=== PATIENT | female | born 1950 | race African-American/Black ===

== ENCOUNTER → 2017-03-17 | Outpatient (CLI) | payer MEDICARE, OTHER ==
[~2017-03-17] MED LIST: ACETAMINOPHEN PO; ALPRAZOLAM PO; AMITRIPTYLINE H25 MG PO; ASPIRIN ENTERI325 M1 PO; ASPIRIN PO; ASPIRIN81 M2 PO; CARVEDILOL3.125 MG PO; COLACE PO; COREG CR10 MG PO; COREG3.125 MG PO; DILAUDID2 MG PO; FENOFIBRATE145 M1 PO; FLEXERIL10 MG PO; GABAPENTIN300 M2 PO; HCTZ PO; HYDROCHLOROTHIA25 MG PO; HYDROXYZINE HCL50 MG PO; KEPPRA500 M1 PO; KEPPRA750 M1 PO; LANTUS100 UNITS/ INJ; LANTUS100 UNITS/ SUBQ; LEVEMIR FL100 UNIT/1 SQ; LEVEMIR100 UNITS/ SUBQ; LEVETIRACETAM1000 MG PO; LIPITOR20 MG PO; LISINOPRIL10 MG PO; LISINOPRIL20 MG PO; LISINOPRIL30 MG PO; LITHIUM PO; LORTAB 10-5001 EACH PO; MONISTAT 745 GM VAG; NAPROSYN500 MG PO; NEURONTIN PO; NEURONTIN300 MG PO; NICOTINE TRANSD14 MG EXT; NITROGLYCERIN0.4 MG SL; NO MEDICATIONS; NORTRIPTYLINE H75 MG PO; NORVASC PO; PLAVIX PO; PREDNISONE PO; PROTONIX PO; QUETIAPINE FUM300 MG PO; RISPERIDONE1 MG PO; ROBITUSSIN-DM118 M1 PO; SEROQUEL PO; SEROQUEL XR200 MG PO; SEROQUEL300 MG PO; SEROQUEL400 MG PO; SEROQUEL50 M1 PO; SIMVASTATIN40 MG PO; TAGAMET PO; TOPAMAX PO; TOPAMAX25 MG PO; TOPAMAX50 MG PO; TOPIRAMATE100 MG PO; TYLENOL325 M1 PO; VICODIN PO; VIMPAT50 MG PO; ZESTRIL40 MG PO; ZOCOR PO
--- NOTE | ~2017-03-17 | US128 ---
[id number] [facility] [address]. [place], [place] [address] [id number] O MR#: [id number] Acc #: [id number] NAME: TAWANDA STEPHEN : 1950 SEX: F STUDY DATE/TIME: 03/17/2017 11:37 UNIT: [facility]US ROOM: STUDY DESCRIPTION: US Thyroid Attending Physician: Toshia Leal Referring Physician: Toshia Leal Ordering Physician: Toshia Leal Primary Care Physician: Toshia Leal MEDICAL IMAGING REPORT This report is preliminary unless electronic signature is present EXAM Thyroid ultrasound. DATE 03/17/2017 HISTORY Thyroid fullness. Patient states doctor felt thyroid, it was enlarged on physical exam. COMPARISON No previous dedicated thyroid ultrasound at this institution for comparison. Correlation is made to MRA of the neck from 10/28/2011. FINDINGS The isthmus measures 5 mm in thickness. The right thyroid lobe measures 4.1 x 1.5 x 2.3 cm. The left thyroid lobe measures 4.2 x 1.3 x 2.1 cm. Scattered hypoechoic nodules are seen within both thyroid lobes. A 1.1 x 0.6 x 0.9 cm hypoechoic nodule is seen within the right lower thyroid pole without hypervascularity on color Doppler imaging. In the posterior right mid to upper thyroid pole, a 1.3 x 0.9 x 1.0 cm solid well-circumscribed nodule is seen which does not appear hypervascular on color Doppler imaging. Within the left lobe, a 7 mm nodule is seen. Within the isthmus, a solid hypoechoic 1.0 x 0.5 x 0.7 cm nodule is seen without hypervascularity. Within the left upper thyroid pole, hypoechoic solid-appearing 6 x 5 x 5 mm nodule is seen. The included portions of the extrathyroidal soft tissues appear unremarkable. IMPRESSION 1. Multinodular nonenlarged thyroid gland. A dominant nodule is solid and located in the right mid to upper thyroid pole measuring 1.3 cm. These nodules do not meet sonographic criteria to warrant fine-needle aspiration at this time (following the recommendations from the Society of Radiologists and Ultrasound). Continued attention at surveillance imaging would be recommended. Dictated by... Nola Guerrier M.D. THIS IS AN ELECTRONICALLY VERIFIED REPORT Nola Guerrier M.D. at 03/18/2017 3:28 PM NATHANIEL/kristie TD: 03/17/2017 16:48 JOB #: [id number] MEDICAL IMAGING REPORT Page 1 of 1 COPY
== END | disposition home or self-care (01) ==
LOC: CGUS 03-08 13:30
DX: E07.89 Other specified disorders of thyroid (principal); E04.2 Nontoxic multinodular goiter
CPT/HCPCS: 76536

== ENCOUNTER → 2017-03-28 | Outpatient (CLI) | payer MEDICARE, OTHER ==
--- NOTE | ~2017-03-28 | BD1 ---
[facility] A Service [facility] RADIOLOGY TEXT RESULTS PATIENT: TAWANDA STEPHEN LOCATION: [facility] : 54 UNIT #: [id number] AGE: [address]: ANA LEAL SEX: F ORDER DR: [id number] [facility] [address]. [place], [place] [address] [id number] O MR#: [id number] Acc #: [id number] NAME: TAWANDA STEPHEN : 1950 SEX: F STUDY DATE/TIME: 03/28/2017 12:39 UNIT: [facility] ROOM: STUDY DESCRIPTION: BD Dexa Bone Dens 1+ Site Attending Physician: Ana Leal Referring Physician: Ana Leal Ordering Physician: Ana Leal Primary Care Physician: Ana Leal MEDICAL IMAGING REPORT This report is preliminary unless electronic signature is present EXAM DXA scan, 03/28/2017. HISTORY Status post menopause with no hormone replacement therapy. Osteopenia. Hysterectomy with removal of both ovaries. Breast carcinoma. Family history of breast carcinoma in mother. Rheumatoid arthritis and diabetes. Hypertension with blood pressure medication. Anticonvulsant use for 6 years. Smoking history for 20 years. Fracture of ankle in last 10 years. FINDINGS Bone mineral density in the left femoral neck was 0.643 g/cm2 which is 1.9 standard deviations below the mean when compared to the young adult reference population which is characteristic of osteopenia. This is 0.9 standard deviations below the mean when compared to the age-matched population. Bone mineral density in the left forearm was 0.508 g/cm2 which is 1.1 standard deviations below the mean when compared to the young adult reference population which is characteristic of osteopenia. This is 0.5 standard deviations above the mean when compared to the age-matched population. IMPRESSION Bone mineral density in the left femoral neck and left forearm characteristic of osteopenia. Dictated by... Clifford Cervantes M.D. THIS IS AN ELECTRONICALLY VERIFIED REPORT [facility] A Service of [facility] RADIOLOGY TEXT RESULTS PATIENT: TAWANDA STEPHEN [facility] [id number] : 54 UNIT #: [id number] AGE: [address]: ANA LEAL SEX: F ORDER DR: Clifford Cervantes M.D. at 03/29/2017 9:56 AM TONI/donavon TD: 03/28/2017 17:08 JOB #: [id number] MEDICAL IMAGING REPORT Page 1 of 1 COPY
== END | disposition home or self-care (01) ==
LOC: CWCC 11:51
DX: Z13.820 Encounter for screening for osteoporosis (principal); M85.89 Other specified disorders of bone density and structure, multiple sites; E11.9 Type 2 diabetes mellitus without complications; Z87.898 Personal history of other specified conditions
CPT/HCPCS: 77080

== ENCOUNTER 2017-04-03 17:30 | Emergency (ER) | payer MEDICARE, OTHER | END 2017-04-03 19:59 | disposition home or self-care (01) | LOC: CED 17:30 | DX: S30.860A Insect bite (nonvenomous) of lower back and pelvis, initial encounter (principal); I10 Essential (primary) hypertension; I48.91 Unspecified atrial fibrillation; E11.9 Type 2 diabetes mellitus without complications; K21.9 Gastro-esophageal reflux disease without esophagitis; I25.2 Old myocardial infarction; J44.9 Chronic obstructive pulmonary disease, unspecified; G40.909 Epilepsy, unspecified, not intractable, without status epilepticus; F41.9 Anxiety disorder, unspecified; F32.9 Major depressive disorder, single episode, unspecified; F17.210 Nicotine dependence, cigarettes, uncomplicated; Z90.710 Acquired absence of both cervix and uterus; Z90.49 Acquired absence of other specified parts of digestive tract; W57.XXXA Bitten or stung by nonvenomous insect and other nonvenomous arthropods, initial encounter | CPT/HCPCS: 82947; 99283 ==